=== PATIENT | male | born 1945 | race Caucasian/White ===

== ENCOUNTER 2018-02-22 21:36 | Outpatient (CLI) | payer MEDICARE ==
[2018-02-23] MEDS ORDERED: IOPAMIDOL-300 100 ML VIAL ONE (11:45)
[2018-03-03] MEDS ORDERED: IOPAMIDOL-300 100 ML VIAL IVP ONE (09:46)
== END 2018-02-22 21:37 | disposition critical access hospital (66) ==
LOC: EMS 21:36
PROVIDERS: ATTEND Surgery
DX: R06.00 Dyspnea, unspecified (principal); R53.1 Weakness
CPT/HCPCS: A0425; A0433

== ENCOUNTER 2018-02-22 21:48 | Inpatient (IN) | payer MEDICARE ==
[2018-02-22] MEDS ORDERED: METOPROLOL 5 MG/5 ML VIAL IVP STA ×2 (22:00→23:26)
--- NOTE | 2018-02-22 22:03 | ED Physician Documentation ---
History of Present Illness - Stated complaint Stated Complaint: RIGHT SIDE WEAKNESS, INTUBATED - Chief complaint Chief Complaint: Resp - History obtained from History obtained from: EMS - History of Present Illness Timing: Today (72-year-old gentleman brought in by paramedics. He lives alone and he called the ambulance tonight because of difficulty breathing and right- sided weakness which is new, "today". Paramedics found him to have a flaccid right side, he was in atrial fibrillation with RVR and he was hypertensive with very labored breathing and low pulse oximetry despite supplemental oxygen. He was administered etomidate and succinylcholine and intubated, and just prior to arrival received Versed and vecuronium. No history is available from the patient, although he has an account number in the EMR there is nothing in the EMR about him.) Review of Systems Unable to obtain: Intubated PD PAST MEDICAL HISTORY - Past Medical History Past Medical History: No Cardiovascular: Other (unknown) - Allergies Allergies/Adverse Reactions: Allergies Allergy/AdvReac Type Severity Reaction Status Date / Time Unable to Assess Allergy Verified 02/22/18 22:14 - Living Situation Living Situation: reports: Alone (per EMS) - Social History Substance Use and Type: Other (unknown) - Family History Family history: reports: Other (unknown) PD ED PE NORMAL - Vitals Vital signs reviewed: Yes - General General: Other (He is intubated with a good pulse, he is in rapid atrial fibrillation and hypertensive. His pupils are reactive but he has no other neurologic response, noting that he did just get vecuronium prior to arrival.) - HEENT HEENT: PERRL - Cardiac Cardiac: Other (Rapid and irregular) - Respiratory Respiratory: Other (Coarse but symmetric breath sounds, no spontaneous respiratory effort.) - Abdomen Abdomen: Soft, Non tender - Derm Derm: No rash - Neuro Neuro: Other (GCS3) Results - Vitals Vitals: Vital Signs - 24 hr 02/22/18 02/22/18 02/22/18 21:54 22:13 22:15 Temperature 35.2 C L Heart Rate 134 H 139 H 162 H Respiratory 17 16 16 Rate Blood Pressure 177/132 H 174/153 H 166/125 H O2 Saturation 98 92 91 L 02/22/18 02/22/18 02/22/18 22:20 22:25 22:27 Temperature Heart Rate 123 H 121 H 128 H Respiratory 16 16 16 Rate Blood Pressure 155/102 H 158/97 H 139/118 H O2 Saturation 92 90 L 91 L 02/22/18 02/22/18 02/22/18 22:30 22:35 22:40 Temperature Heart Rate 121 H 122 H 125 H Respiratory 16 16 16 Rate Blood Pressure 160/122 H 167/111 H 163/108 H O2 Saturation 90 L 90 L 91 L 02/22/18 02/22/18 02/22/18 22:45 22:50 22:55 Temperature Heart Rate 124 H 131 H 124 H Respiratory 16 16 16 Rate Blood Pressure 170/93 H 157/109 H 147/112 H O2 Saturation 90 L 90 L 97 02/22/18 02/22/18 02/22/18 23:14 23:28 23:36 Temperature 35.7 C L Heart Rate 130 H 126 H 114 H Respiratory 16 16 16 Rate Blood Pressure 147/121 H 148/100 H 133/93 H O2 Saturation 95 95 96 02/22/18 02/22/18 02/22/18 23:40 23:45 23:50 Temperature Heart Rate 107 H 109 H 106 H Respiratory 16 16 16 Rate Blood Pressure 105/90 H 117/80 115/83 H O2 Saturation 96 96 97 Oxygen O2 Source Mechanical ventilator - EKG (time done) 2156 Rate: Rate (enter#) (168) Rhythm: Atrial fibrillation QRS: LVH Ischemia: Non specific changes Computer interpretation: Agree with computer - Labs Labs: Laboratory Tests 02/22/18 02/22/18 02/22/18 22:00 22:00 22:00 WBC 11.8 H RBC 4.79 Hgb 14.1 Hct 44.4 MCV 92.7 MCH 29.4 MCHC 31.8 L RDW 14.1 Plt Count 246 MPV 9.4 Neut # 6.0 Lymph # 4.7 H [place] # 0.8 Eos # 0.2 Baso # 0.0 Absolute Nucleated RBC 0.00 Nucleated RBC % 0.0 Manual Slide Review Indicated Platelet Estimate NORMAL (130-450,000) Platelet Morphology 1+ GIANT PLATELETS RBC Morph Micro Appear NORMAL APPEARANCE PT 12.8 H INR 1.1 APTT 25.6 Sodium 139 Potassium 4.6 Chloride 106 Carbon Dioxide 22 Anion Gap 11.0 BUN 20 Creatinine 1.1 Estimated GFR (MDRD) 66 L Glucose 328 H Lactic Acid Calcium 8.4 L Magnesium 2.0 Total Bilirubin 0.9 AST 48 H ALT 53 Alkaline Phosphatase 90 Total Creatine Kinase 87 CK-MB (CK-2) Troponin I Total Protein 6.6 L Albumin 3.7 Globulin 2.9 Albumin/Globulin Ratio 1.3 Lipase 15 L TSH Urine Color Urine Clarity Urine pH Ur Specific [place] Urine Protein Urine Glucose (UA) Urine Ketones Urine Occult Blood Urine Nitrite Urine Bilirubin Urine Urobilinogen Ur Leukocyte Esterase Urine RBC Urine WBC Ur Squamous Epith Cells Urine Bacteria Ur Microscopic Review Urine Culture Comments Salicylates < 6.0 Urine Opiates Screen Ur Oxycodone Screen Urine Methadone Screen Ur Propoxyphene Screen Acetaminophen < 10 L Ur Barbiturates Screen Ur Tricyclics Screen Ur Phencyclidine Scrn Ur Amphetamine Screen U Methamphetamines Scrn U Benzodiazepines Scrn Urine Cocaine Screen U Cannabinoids Screen Ethyl Alcohol < 5.0 02/22/18 02/22/18 02/22/18 22:00 22:00 22:18 WBC RBC Hgb Hct MCV MCH MCHC RDW Plt Count MPV Neut # Lymph # [place] # Eos # Baso # Absolute Nucleated RBC Nucleated RBC % Manual Slide Review Platelet Estimate Platelet Morphology RBC Morph Micro Appear PT INR APTT Sodium Potassium Chloride Carbon Dioxide Anion Gap BUN Creatinine Estimated GFR (MDRD) Glucose Lactic Acid 2.8 H Calcium Magnesium Total Bilirubin AST ALT Alkaline Phosphatase Total Creatine Kinase CK-MB (CK-2) 3.7 Troponin I 0.04 Total Protein Albumin Globulin Albumin/Globulin Ratio Lipase TSH 1.23 Urine Color Urine Clarity Urine pH Ur Specific [place] Urine Protein Urine Glucose (UA) Urine Ketones Urine Occult Blood Urine Nitrite Urine Bilirubin Urine Urobilinogen Ur Leukocyte Esterase Urine RBC Urine WBC Ur Squamous Epith Cells Urine Bacteria Ur Microscopic Review Urine Culture Comments Salicylates Urine Opiates Screen Ur Oxycodone Screen Urine Methadone Screen Ur Propoxyphene Screen Acetaminophen Ur Barbiturates Screen Ur Tricyclics Screen Ur Phencyclidine Scrn Ur Amphetamine Screen U Methamphetamines Scrn U Benzodiazepines Scrn Urine Cocaine Screen U Cannabinoids Screen Ethyl Alcohol 02/22/18 22:29 WBC RBC Hgb Hct MCV MCH MCHC RDW Plt Count MPV Neut # Lymph # [place] # Eos # Baso # Absolute Nucleated RBC Nucleated RBC % Manual Slide Review Platelet Estimate Platelet Morphology RBC Morph Micro Appear PT INR APTT Sodium Potassium Chloride Carbon Dioxide Anion Gap BUN Creatinine Estimated GFR (MDRD) Glucose Lactic Acid Calcium Magnesium Total Bilirubin AST ALT Alkaline Phosphatase Total Creatine Kinase CK-MB (CK-2) Troponin I Total Protein Albumin Globulin Albumin/Globulin Ratio Lipase TSH Urine Color YELLOW Urine Clarity CLEAR Urine pH 6.0 Ur Specific [place] 1.025 Urine Protein NEGATIVE Urine Glucose (UA) NEGATIVE Urine Ketones NEGATIVE Urine Occult Blood SMALL H Urine Nitrite NEGATIVE Urine Bilirubin NEGATIVE Urine Urobilinogen 0.2 (NORMAL) Ur Leukocyte Esterase NEGATIVE Urine RBC 0-5 Urine WBC 0-3 Ur Squamous Epith Cells NONE SEEN Urine Bacteria None Seen Ur Microscopic Review INDICATED Urine Culture Comments NOT INDICATED Salicylates Urine Opiates Screen NEGATIVE Ur Oxycodone Screen NEGATIVE Urine Methadone Screen NEGATIVE Ur Propoxyphene Screen NEGATIVE Acetaminophen Ur Barbiturates Screen NEGATIVE Ur Tricyclics Screen NEGATIVE Ur Phencyclidine Scrn NEGATIVE Ur Amphetamine Screen NEGATIVE U Methamphetamines Scrn POSITIVE H U Benzodiazepines Scrn NEGATIVE Urine Cocaine Screen NEGATIVE U Cannabinoids Screen POSITIVE H Ethyl Alcohol - Rads (name of study) CT Head Radiology: EMP read contemporaneously (Possible hyperdense artery in the left sylvian fissure) 1v chest Radiology: EMP read contemporaneously (Vascular haziness, endotracheal tube 3 cm from the reyna) Post Line CXR Radiology: EMP read contemporaneously (Right IJ line in the mid SVC, no pneumothorax.) Procedures - Central Line Central Line Preparation: Unable to obtain consent, Time out completed, Ultrasound used, Sterile prep and drape Central line location: Right IJ Central line type: Triple lumen Central line aftercare: Chlorhexidine disc placed, Secured, Placement confirmed , No pneumothorax, No complications PD MEDICAL DECISION MAKING - ED course ED course: 72-year-old gentleman presents after intubation with respiratory failure and a history per the paramedics of flaccid right side that started "today". Sounds like he lives alone and initially I did not have any contact information in the chart for family etc. He was taken expeditiously to head CT which showed a possible hyperdense area in the left sylvian fissure concerning for clot. A central line was placed and he was started on propofol, he was breathing over the vent to little bit but still no really useful neurologic examination, I could not really obtain any response to painful stimuli. Lab work was notable for methamphetamine positivity. His head CT was otherwise initially negative. He was given divided doses of IV mode metoprolol for the A. fib with RVR with pretty good response. I called [facility] after ordering a CT angiogram of the head and neck and spoke with Dr. Ravi Lr there who confirmed that if he had a intra-arterial thrombus, he should probably be transferred as they may be able to do something about it. Review of the EMR finally revealed the name, Apple Colón and I found a phone number, . She did answer the phone and said that she was his ex- and still his decision maker. I do not have any confirmation of this but I told her I would call her back after the results of the CT angiogram. Dr Lr looked at the images and did not see arterial thrombus. I did not either. Nor did Sudarshan. Given that, nothing vascular to do urgently and I spoke with Dr. Stewart for admission at 12:05 AM (02/23/2018) - Critical Care Time(min): 102 Time Includes: Direct patient care, Review records, Reassess patient, Document care, Coordinate care, Medical consult, Family consult for tx dec Data interpretation: Labs, Pulse ox Procedures included in critical care time: Peripheral IV Procedures excluded from critical care time: Central IV, EKG Departure - Departure Clinical Impression: Atrial fibrillation with RVR, Stroke-like symptom Respiratory failure Qualifiers: Chronicity: acute Respiratory failure complication: unspecified whether with hypoxia or hypercapnia Qualified Code(s): J96.00 - Acute respiratory failure, unspecified whether with hypoxia or hypercapnia Condition: Critical
[2018-02-22 22:13] LABS: BASOPHILS % (AUTO) 0.3 %; EOSINOPHILS # (AUTO) 0.2 10^3/uL (0.0-0.7); EOSINOPHILS % (AUTO) 1.4 %; HGB - HEMOGLOBIN 14.1 g/dL (14.0-18.0); LYMPHOCYTES # (AUTO) 4.7 10^3/uL (1.5-3.5); LYMPHOCYTES % (AUTO) 39.9 %; MEAN CORPUSCULAR HEMOGLOBIN 29.4 pg (27.0-31.0); MEAN CORPUSCULAR HGB CONC 31.8 g/dL (32.0-36.0); MEAN CORPUSCULAR VOLUME 92.7 fL (80.0-94.0); MEAN PLATELET VOLUME 9.4 fL (7.4-11.4); MONOCYTES # (AUTO) 0.8 10^3/uL (0.0-1.0); MONOCYTES % (AUTO) 7.1 %; NEUTROPHILS % (AUTO) 51.3 %; PLT - PLATELET COUNT 246 10^3/uL (130-450); RED BLOOD COUNT 4.79 10^6/uL (4.70-6.10); RED CELL DISTRIBUTION WIDTH 14.1 % (12.0-15.0); WHITE BLOOD COUNT 11.8 x10^3/uL (4.8-10.8)
[2018-02-22 22:17] LABS: INR 1.1 (0.8-1.2); PT - PROTHROMBIN TIME 12.8 secs (9.9-12.6)
[2018-02-22 22:20] LABS: ACETAMINOPHEN < 10 ug/mL (10-30); ALBUMIN 3.7 g/dL (3.2-5.5); ALBUMIN/GLOBULIN RATIO 1.3 (1.0-2.2); ALKALINE PHOSPHATASE 90 IU/L (42-121); ALT ALANINE AMINOTRANSFERASE 53 IU/L (10-60); AST ASPARTATE AMINOTRANSFERASE 48 IU/L (10-42); BILIRUBIN,TOTAL 0.9 mg/dL (0.2-1.0); BUN - BLOOD UREA NITROGEN 20 mg/dL (6-20); CALCIUM 8.4 mg/dL (8.5-10.3); CARBON DIOXIDE - CO2 22 mmol/L (21-32); CHLORIDE 106 mmol/L (101-111); CK- CREATINE KINASE 87 IU/L (22-269); CREATININE 1.1 mg/dL (0.6-1.2); GFR - MDRD 66 (>89); GLUCOSE 328 mg/dL (70-100); LIPASE 15 U/L (22-51); SALICYLATE < 6.0 mg/dL; SODIUM 139 mmol/L (135-145); TOTAL PROTEIN 6.6 g/dL (6.7-8.2)
[2018-02-22 22:23] LABS: CREATINE KINASE MB 3.7 ng/mL (0.6-6.3); TROPONIN I 0.04 ng/mL (<0.49)
--- NOTE | 2018-02-22 22:26 | CT Report ---
EXAM: CT HEAD EXAM DATE: 02/22/2018 10:16 PM. CLINICAL HISTORY: Right sided weakness COMPARISON: None. TECHNIQUE: Multiaxial CT images were obtained from the foramen magnum to the vertex. Reformats: Coron al. IV contrast: None. In accordance with CT protocol optimization, one or more of the following dose reduction techniques w ere utilized for this exam: automated exposure control, adjustment of mA and/or KV based on patient s ize, or use of iterative reconstructive technique. FINDINGS: Parenchyma: No intraparenchymal hemorrhage. No evidence of mass, midline shift, or CT findings of rec ent infarction. Fallon-white differentiation is distinct. Lacunar infarcts are seen within the right ca udate nucleus. Extraaxial Spaces: Normal for age. No subdural or epidural collections identified. Ventricles: Normal in size and position. Sinuses and Orbits: Imaged paranasal sinuses, orbits, and mastoids show no significant abnormality. Bones: No evidence of fracture or calvarial defect. Other: None. IMPRESSION: Chronic lacunar infarcts within the right caudate nucleus. Faintly hyperdense left M2 branch within the dorsal sylvian fissure, potentially thrombosed. No hemorrhage. No CT evidence of recent infarct. ASPECTS score 10 bilaterally. RADIA The above findings were discussed with Dr. Kaplan by Dr. Norris Love at 22:24 hrs on 02/22/18. Referring Provider Line: [phone] SITE ID: [id number]
[2018-02-22 22:30] LABS: MUDS CUTOFF CONCENTRATIONS CUTOFF CONC BELOW:
[2018-02-22] MEDS: PROPOFOL 1000 MG/100 ML 100 ML IV STA (22:30)
[2018-02-22] MEDS ORDERED: IOPAMIDOL-300 100 ML VIAL ONE (22:32)
[2018-02-22 22:34] LABS: BILIRUBIN,URINE NEGATIVE (NEGATIVE); GLUCOSE, URINE (UA) NEGATIVE (NEGATIVE); KETONES,URINE (UA) NEGATIVE (NEGATIVE); LEUKOCYTE ESTERASE, URINE NEGATIVE (NEGATIVE); NITRITE,URINE NEGATIVE (NEGATIVE); OCCULT BLOOD,URINE SMALL (NEGATIVE); PROTEIN,URINE NEGATIVE (NEGATIVE); UROBILINOGEN,URINE 0.2 (NORMAL) E.U./dL (NORMAL)
[2018-02-22 22:37] LABS: PLATELET ESTIMATE, MANUAL NORMAL (130-450,000) (NORMAL); PLATELET MORPHOLOGY 1+ GIANT PLATELETS (NORMAL); RBC MORPHOLOGY (MULTIPLE) NORMAL APPEARANCE (NORMAL)
[2018-02-22 22:45] LABS: CLARITY,URINE CLEAR (CLEAR)
[2018-02-22 22:46] LABS: AMPHETAMINE SCREEN,URINE NEGATIVE (NEGATIVE); BACTERIA,URINE None Seen /HPF (None Seen); BENZODIAZEPINES SCREEN, URINE NEGATIVE (NEGATIVE); COCAINE SCREEN URINE NEGATIVE (NEGATIVE); METHADONE SCREEN, URINE NEGATIVE (NEGATIVE); METHAMPHETAMINES SCREEN, URINE POSITIVE (NEGATIVE); OPIATE SCREEN, URINE NEGATIVE (NEGATIVE); OXYCODONE SCREEN, URINE NEGATIVE (NEGATIVE); PROPOXYPHENE SCREEN, URINE NEGATIVE (NEGATIVE); RBC,URINE 0-5 /HPF (0-5); SQUAMOUS EPITHELIAL CELL,UR NONE SEEN (<= Few); TRICYCLIC ANTIDEPRESSANT,URINE NEGATIVE (NEGATIVE)
--- NOTE | 2018-02-22 22:49 | XRAY Report ---
EXAM: CHEST RADIOGRAPHY EXAM DATE: 02/22/2018 10:16 PM. CLINICAL HISTORY: Respiratory failure. Intubated. COMPARISON: None. TECHNIQUE: 1 view. FINDINGS: Lungs/Pleura: Mild haziness in the bases, otherwise no focal opacities evident. No pleural effusion. No pneumothorax. Mediastinum: Large heart. Other: ET tube is about 5 cm from the reyna. Mild S-shaped scoliosis. IMPRESSION: 1. Large heart. 2. Mild haziness in the bases, atelectasis/infiltrate versus pulmonary edema. 3. ET tube about 2 cm from the reyna. RADIA Referring Provider Line: [phone] SITE ID: [id number]
--- NOTE | 2018-02-22 23:07 | XRAY Report ---
EXAM: CHEST RADIOGRAPHY EXAM DATE: 02/22/2018 10:59 PM. CLINICAL HISTORY: Post right IJ central line. COMPARISON: Today at 2155. TECHNIQUE: 1 view. FINDINGS: Lungs/Pleura: Mild bibasilar and left perihilar haziness. No pneumothorax. Mediastinum: Large heart. Other: ET tube about 7 cm from the reyna. Distal enteric tube obscured. Right IJ line to mid SVC. IMPRESSION: Right IJ line to mid SVC. No pneumothorax or other acute change. RADIA Referring Provider Line: [phone] SITE ID: [id number]
[2018-02-22] MEDS: IOPAMIDOL-300 100 ML VIAL IVP ONE (23:29)
[2018-02-23] MEDS ORDERED: ONDANSETRON 4 MG/2 ML VIAL IVP PRN (00:09)
--- NOTE | 2018-02-23 00:17 | CT Report ---
EXAM: CT ANGIOGRAM HEAD. CT SCAN OF THE HEAD WITH CONTRAST. EXAM DATE: 02/22/2018 11:29 PM CLINICAL HISTORY: Right sided weakness, now unresponsive and intubated. COMPARISON: Head CT done immediately prior. TECHNIQUE: - CT Scan Head: Using a multidetector scanner, axial images were acquired from the foramen magnum to the skull vertex after contrast administration. - CT Angiogram: Using a multidetector scanner, high-resolution axial images were acquired from the sk ull base through vertex following rapid infusion of intravenous contrast. Reformats: Multiplanar MIP reformats were reconstructed. Nascet criteria used for stenosis measurement. IV Contrast: 80 cc Isovue 300. In accordance with CT protocol optimization, one or more of the following dose reduction techniques w ere utilized for this exam: automated exposure control, adjustment of mA and/or KV based on patient s ize, or use of iterative reconstructive technique. FINDINGS: POST-CONTRAST HEAD: No abnormal enhancement. CT ANGIOGRAM HEAD: Left vertebral artery is slightly larger than the right. Basilar artery and the right posterior cereb ral artery are unremarkable. Persistent circulation to the left posterior cerebral area There is atherosclerotic calcification of both carotid siphons without flow limiting stenosis. Both a nterior and middle cerebral arteries appear patent and unremarkable. Specifically, the left MCA and i ts major branches appear patent without evidence of thrombus. Impression: Head CT after contrast: No abnormal enhancement. Intracranial CT angiography: No flow limiting stenosis, occlusion or aneurysm. RADIA The above findings were discussed with Dr. Kaplan by Dr. Norris Love at 00:04 hrs on 02/23/18. Referring Provider Line: [phone] SITE ID: [id number]
--- NOTE | 2018-02-23 00:21 | CT Preliminary Report ---
Exam: CT NECK ANGIO Impression: No significant carotid stenosis. Patent vertebral arteries in the neck bilaterally. RADIA SITE ID: [id number]
--- NOTE | 2018-02-23 00:21 | CT Report ---
EXAM: CT ANGIOGRAM NECK EXAM DATE: 02/22/2018 11:30 PM. CLINICAL HISTORY: Right sided weakness, now unresponsive and intubated. COMPARISON: None. TECHNIQUE: Routine axial helical imaging was performed from the skull base through the aortic arch. R econstructions: Routine multiplanar 3D MIP reconstructions. IV Contrast: 80 cc Isovue 300. Evaluation of arterial stenosis is based on a NASCET method of measurement. In accordance with CT protocol optimization, one or more of the following dose reduction techniques w ere utilized for this exam: automated exposure control, adjustment of mA and/or KV based on patient s ize, or use of iterative reconstructive technique. FINDINGS: Aortic arch, origins of the great vessels, brachiocephalic and both subclavian arteries are patent. Right common carotid artery is patent to the bifurcation. There is atherosclerotic calcification of t he carotid bulb without significant stenosis. Left common carotid is patent to the bifurcation. Minimal atherosclerotic calcification of the caroti d bulb without flow-limiting stenosis. Both vertebral arteries are patent in the neck. Left is slightly larger than the right. ET and orogastric tube in position. Right IJ line. Impression: No significant carotid stenosis. Patent vertebral arteries in the neck bilaterally. RADIA Referring Provider Line: [phone] SITE ID: [id number]
--- NOTE | 2018-02-23 00:38 | HISTORY & PHYSICAL EXAMINATION ---
Chief Complaint - Chief Complaint Chief Complaint: he called EMS bc he was having right sided weakness History of Present Illness - Admitted From Admitted From:: ER/home - History Obtained From Records Reviewed: [facility] History obtained from: Dr. Reese and ambulance crew Exam Limitations: patient is intubated on propofol - History of Present Illness HPI Comment/Other: We know nothing about this gentleman other than what in the EMR. He has a couple of x-rays from a few years ago, and in reviewing [facility] and the [facility] network, there is no data. The [facility] has him being registered in 2013 with [facility] but there are no notes, lab, x-rays or anything associated with that registration. He called the ambulance [employer] [employer]. Stated that he was having a stroke with right- sided weakness. Fire engine responded initially and found the patient to have respiratory distress and put him on a nonrebreather. The ambulance crew showed up shortly thereafter. They described the situation with the house was disheveled, the patient is unhygienic. There are packs of cigarettes next to him in the chair he was sitting in. He smelled of cigarette smoke. He was tripoding, struggling to breathe. He was answering them in yes no by nodding his head or shaking his head but not sentences. Even with that, he was unable to completely communicate as he was getting more more exhausted. They quickly transferred into their ambulance rig, and he was then put on CPAP and nebulizers. He was starting to get lethargic, tired out, and his breathing rate was starting to slow down. Fearing respiratory failure, the patient was emergently intubated in the field and received paralytics and sedatives. When he got to the emergency room, patient was now intubated and paralyzed. Dr. Reese has done a workup and found him to being intubated, obtunded gentleman who is vent dependent. Afebrile. Tachycardic with atrial fibrillation. He was hypertensive to 177/132. Pupils were reactive. He had coarse breath sounds with no spontaneous respiratory effort and the abdomen appeared benign. [place] Coma Scale was 3. He went to the CT scanner and he had hyperdense area in the left sylvian fissure concerning for a clot. A central line was started and propofol was also started. His A. fib with RVR was treated with metoprolol. [facility] was consulted and felt that there is not much more they could offer. CT angiogram of the head and neck was negative for embolic stroke. The patient is now admitted to ICU on a ventilator, slowly starting to breathe above the vent. On a propofol drip and systolic pressure 68-70. His atrial fibrillation is now in the low 100s. Chest x-ray does not show new infiltrate but he does have a very large heart. Urine tox screen is positive for cannabis and methamphetamines. Random glucose is 328. Lactic acid is 2.8. Troponins are negative. ADDDENDUM: 01:29 His exwife came to the hospital with the patient's 13 year old son. He lives w mom and avoids going to Dad's house bc of severe cigarette smoking. As far as they know, he doesn't have recreational substance abuse hx nor does he drink. He just smokes...a lot but can't quantify. he never sees physicians so they don 't know if he had any heart, lung and endocrine diseases. 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 She is his second . Son from first marriage did live with them until he reached majority then left the house. Since he turned 22 he has not spoken to his dad for 10 years. She has noted he had depression and that was why they . He has gotten worse with that over the years and he was more and more isolated. She also feels that he has gotten increasingly forgetful. Emotionally labile over the last 2 years. wonders if he has had strokes before. They last saw him 2 weeks ago and he was very tired, struggling to breathe. No fever, no acute confusion. She is is POA even though they are , She states they is the proper form filled out but it's in a safety deposit box. I have asked her to bring that in for us. History - Past Medical History Cardiovascular: reports: Other (unknown) Other Past Medical History: Unable to obtain updated medical history during this visit r/t pt status. - Past Surgical History Other past surgical history: Unable to obtain any surgical history at this time - Family & Social History Family History Comment/Other: Unable to obtain at this time Living Situation: Alone (per EMS) Social History Notes: Unable to obtain at this time. 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) Meds/Allgy - Allergies Allergies/Adverse Reactions: Allergies Allergy/AdvReac Type Severity Reaction Status Date / Time Unable to Assess Allergy Verified 02/22/18 22:14 Review of Systems - Other Findings Other Findings: Unable to assess at this time Exam - Vital Signs Reviewed Vital Signs: Yes Vital Signs: Vital Signs x48h Temp Pulse Resp BP Pulse Ox 02/22/18 23:50 106 H 16 115/83 H 97 02/22/18 23:45 109 H 16 117/80 96 02/22/18 23:40 107 H 16 105/90 H 96 02/22/18 23:36 114 H 16 133/93 H 96 02/22/18 23:28 126 H 16 148/100 H 95 02/22/18 23:14 35.7 C L 130 H 16 147/121 H 95 02/22/18 22:55 124 H 16 147/112 H 97 02/22/18 22:50 131 H 16 157/109 H 90 L 02/22/18 22:45 124 H 16 170/93 H 90 L 02/22/18 22:40 125 H 16 163/108 H 91 L 02/22/18 22:35 122 H 16 167/111 H 90 L 02/22/18 22:30 121 H 16 160/122 H 90 L 02/22/18 22:27 128 H 16 139/118 H 91 L 02/22/18 22:25 121 H 16 158/97 H 90 L 02/22/18 22:20 123 H 16 155/102 H 92 02/22/18 22:15 162 H 16 166/125 H 91 L 02/22/18 22:13 139 H 16 174/153 H 92 02/22/18 21:54 35.2 C L 134 H 17 177/132 H 98 - Physical Exam General Appearance: positive: Other (Intubated on a propofol drip, on a ventilator, pupils slightly dilated at mid range and unresponsive at this time.He is a tall, white male, looks stated age, unshaven, smells of urine) Eyes Bilateral: positive: PERRL ENT: positive: Other (Very poor dentition) Neck: positive: No JVD, Lymphadenopathy (R) ([place]), Lymphadenopathy (L) ( [place]). negative: Stiff neck, Carotid bruit Respiratory: positive: Chest non-tender (Barrel chest), Wheezes, Rhonchi, Other (He is now breathing at 30 breaths per minute. The vent is set at 14. I have lowered his PEEP from 10-5. His FiO2 is 100% and is saturating 100%. Peak pulmonary pressures are at 20-22. TV is set at 450 and he can breath to 530 cc.) Cardiovascular: positive: Irregularly irregular, Tachycardia, Other (Distant cardiac tones). negative: Systolic murmur, Gallop/S4, Friction rub Peripheral Pulses: positive: 1+ Abdomen: positive: Non-tender, No organomegaly, Nml bowel sounds, No distention , Other (Umbilicus is filled with dried skin, slightly reddened, foul-smelling) Skin: positive: Warm, Dry Extremities: positive: No pedal edema Neurologic/Psychiatric: positive: Other (Grimaces with blood draws, grimaces with painful stimuli and sternal rub, but he is on a propofol drip) Babinski Reflex: Right: Absent, Left: Absent Conclusion/Plan - Problem List (1) Respiratory failure Conclusion/Plan: In putting together the scene is described by EMS with cigarettes, his tripoding on initial exam, then failing with a large heart on chest x-ray, this gentleman could have combined congestive heart failure and COPD as the cause of his acute respiratory failure. There is no pneumonia on chest x-ray. Plan: Admit to hospital for inpatient status to ICU Once he is in ICU, change ventilator from portable ventilator that he is on to the bedside ventilator in ICU Assessment status with blood gas and change settings as appropriate. My first goal is to reduce his FiO2 and control his respiratory rate Treat empirically for COPD with nebs, steroids, and short-term antibiotics until he wakes up Attempt extubation in the morning if he is stable. Assess cardiac status to see if he is with congestive heart failure. Neck veins are not distended, and while he has rhonchi, not necessarily has rales. Check echo in the morning. Qualifiers: Chronicity: acute Respiratory failure complication: unspecified whether with hypoxia or hypercapnia Qualified Code(s): J96.00 - Acute respiratory failure, unspecified whether with hypoxia or hypercapnia (2) Altered mental status, unspecified Conclusion/Plan: Initially felt to be from stroke as the patient stated that to EMS on the phone. They stated that he seemed to be having right arm weakness at the scene. Here in the emergency room, he has been spontaneously moving his left arm with noxious stimuli. Neurologic evaluation shows him to have possible old chronic lacunar infarcts, but nothing new. I do not have the report of the CT angiogram of head and neck yet. It has not been released by [facility]. Verbally, from Dr. Reese, that is negative. He will get a statin, and aspirin when he is awake. Qualifiers: Coma depth: [place] coma 3-8 Coma timing: at arrival to emergency department (3) Atrial fibrillation with RVR Conclusion/Plan: Unclear if this is old or new. In looking at the chest x-ray and seen the heart size, this may be a chronic problem. With methamphetamines on board, I postulated cardiomyopathy, left atrial dilation, and chronic A. fib. In any case, we will just attempt rate control at this time. Initial troponins are negative. Repeat troponins in 6 hours. Check echocardiogram in the morning.Start anticoagulation with Coumadin when he is awake in the morning if possible. (4) Hypotension Conclusion/Plan: This seems to be related to the propofol. The higher the propofol dose, the lower his blood pressure. We will adjust vent settings, adjust propofol, and he was blood pressure does not come up, consider levo fed. Qualifiers: Hypotension type: hypotension due to drug Qualified Code(s): I95.2 - Hypotension due to drugs (5) Hyperglycemia Conclusion/Plan: At this time is not clear if he has lactic acidosis with DKA or lactic acidosis from another cause and the hyperglycemia is a separate issue. We do not even know if he has diabetes or not. Plan, Lantus 10 units right now. Sliding scale insulin high dose for an n.p.o. patient. Check A1c. When awake, investigate his past medical history with practitioners or if he even has a history of diabetes. Considering him about to start him on steroids for COPD, I anticipate his sugars to get higher. (6) Methamphetamine use Conclusion/Plan: noted on tox screen. will watch for withdrawal. investigate more when he is awake and off vent. hopefully by tomorrow. - Lab Results Fish Bones: 02/22/18 22:00 02/22/18 22:00 - Diagnostic Imaging Results Diagnostic Imaging Results: positive: Final report reviewed - EKG Results EKG Interpreted Independently: Yes Core Measures - Anticipated LOS I expect patient to be DC'd or transferred within 96 hours.: Yes - DVT/VTE - Prophylaxis VTE/DVT Device ordered at admit?: Yes
[2018-02-23] MEDS ORDERED: SODIUM CHLORIDE 0.9% 1,000 ML IV ONE (00:57)
[2018-02-23] MEDS ORDERED: IPRATROPIUM/ALBUTEROL 3 ML NEB INH PRN (00:58)
[2018-02-23] MEDS ORDERED: levoFLOXacin 750 MG/150 ML 750 MG/150 ML BAG IV SCH (01:00)
[2018-02-23] MEDS ORDERED: INSULIN GLARGINE 300 UNIT/3 ML PEN SUBQ SCH (01:00)
[2018-02-23] MEDS: SODIUM CHLORIDE 0.9% 1,000 ML IV SCH ×2 (01:05→12:12)
[2018-02-23] MEDS ORDERED: METOPROLOL 5 MG/5 ML VIAL IVP PRN (01:05)
[2018-02-23] MEDS ORDERED: PROPOFOL 1000 MG/100 ML 100 ML IV ONE ×2 (01:12→06:16)
[2018-02-23] MEDS: methylPREDNISolone SUCCINATE 40 MG/ML VIAL IVP SCH ×3 (01:20→14:36)
[2018-02-23] MEDS: SODIUM CHLORIDE FLUSH 0.9% 10 ML SYRINGE IVP SCH ×2 (01:20→08:28)
[2018-02-23 02:22] LABS: ABG BASE EXCESS -6.3 mmol/L (-2.0-3.0); ABG OXYGEN SATURATION 99 % (94-98); ABG PCO2 49 mmHg (34-45); ABG PH 7.25 (7.35-7.45); ABG TCO2 22.5 MMOL/L (21.0-29.0)
[2018-02-23 02:23] LABS: ALLEN TEST POSITIVE
[2018-02-23 02:25] LABS: ABG PO2 312 mmHg (80-100)
[2018-02-23] MEDS: PROPOFOL 1000 MG/100 ML 100 ML IV STA ×2 (02:31→06:13)
[2018-02-23 04:19] LABS: BASOPHILS % (AUTO) 0.3 %; EOSINOPHILS % (AUTO) 0.1 %; HGB - HEMOGLOBIN 13.1 g/dL (14.0-18.0); LYMPHOCYTES # (AUTO) 0.7 10^3/uL (1.5-3.5); LYMPHOCYTES % (AUTO) 4.8 %; MEAN CORPUSCULAR HEMOGLOBIN 29.7 pg (27.0-31.0); MEAN CORPUSCULAR HGB CONC 32.4 g/dL (32.0-36.0); MEAN CORPUSCULAR VOLUME 91.7 fL (80.0-94.0); MEAN PLATELET VOLUME 9.2 fL (7.4-11.4); MONOCYTES # (AUTO) 0.9 10^3/uL (0.0-1.0); MONOCYTES % (AUTO) 6.5 %; NEUTROPHILS # (AUTO) 12.9 10^3/uL (1.5-6.6); NEUTROPHILS % (AUTO) 88.3 %; PLT - PLATELET COUNT 197 10^3/uL (130-450); RED BLOOD COUNT 4.42 10^6/uL (4.70-6.10); RED CELL DISTRIBUTION WIDTH 14.1 % (12.0-15.0); WHITE BLOOD COUNT 14.6 x10^3/uL (4.8-10.8)
[2018-02-23 04:30] LABS: ALBUMIN 3.6 g/dL (3.2-5.5); ALBUMIN/GLOBULIN RATIO 1.4 (1.0-2.2); BILIRUBIN,TOTAL 0.8 mg/dL (0.2-1.0); CALCIUM 8.1 mg/dL (8.5-10.3); CREATININE 1.2 mg/dL (0.6-1.2); TOTAL PROTEIN 6.2 g/dL (6.7-8.2)
[2018-02-23] MEDS: INSULIN REGULAR HUMAN 100 UNIT/1 ML 10 ML MDV SUBQ SCH ×2 (06:13→12:46)
[2018-02-23 06:21] LABS: ABG BASE EXCESS -2.9 mmol/L (-2.0-3.0); ABG OXYGEN SATURATION 93 % (94-98); ABG PCO2 44 mmHg (34-45); ABG PH 7.33 (7.35-7.45); ABG PO2 65 mmHg (80-100); ABG TCO2 24.4 MMOL/L (21.0-29.0); ALLEN TEST POSITIVE
[2018-02-23] MEDS ORDERED: PANTOPRAZOLE 40 MG VIAL IVP SCH (07:00)
[2018-02-23 07:23] LABS: HB2 TOTAL 14.5 g/dL; HEMOGLOBIN A1C 0.53 g/dL; HEMOGLOBIN A1C % 5.5 % (4.6-6.2)
[2018-02-23] MEDS ORDERED: ASPIRIN 300 MG SUPP PR STA (08:02)
[2018-02-23] MEDS ORDERED: ATORVASTATIN 40 MG TABLET PO STA (08:03)
[2018-02-23] MEDS: SODIUM CHLORIDE FLUSH 0.9% 10 ML SYRINGE IVP PRN ×4 (08:29→13:39)
--- NOTE | 2018-02-23 08:48 | XRAY Report ---
FRONTAL CHEST: 02/23/2018 CLINICAL INDICATION: Intubation. COMPARISON: 02/22/2018. FINDINGS: Endotracheal tube terminates approximately 7 cm above the reyna. Nasogastric tube terminates in the stomach. Right jugular central venous catheter is stable. The cardiac silhouette is within normal limits. Right basilar airspace disease is increasing. Minimal left basilar airspace disease is seen. No pneumothorax or definite effusion. IMPRESSION: STABLE SUPPORT LINES AND TUBES. INCREASING RIGHT BASILAR AIRSPACE DISEASE. TD: 02/23/2018 08:47 [facility]
[2018-02-23] MEDS ORDERED: CHLORHEXIDINE GLUCONATE 15 ML UDC PO SCH (09:00)
[2018-02-23] MEDS ORDERED: METOPROLOL TARTRATE 25 MG TABLET PO SCH (09:00)
[2018-02-23 09:19] LABS: HGB - HEMOGLOBIN 13.6 g/dL (14.0-18.0); MEAN CORPUSCULAR HEMOGLOBIN 30.5 pg (27.0-31.0); MEAN CORPUSCULAR HGB CONC 33.4 g/dL (32.0-36.0); MEAN CORPUSCULAR VOLUME 91.2 fL (80.0-94.0); MEAN PLATELET VOLUME 9.1 fL (7.4-11.4); RED BLOOD COUNT 4.45 10^6/uL (4.70-6.10); RED CELL DISTRIBUTION WIDTH 13.8 % (12.0-15.0); WHITE BLOOD COUNT 11.7 x10^3/uL (4.8-10.8)
[2018-02-23] MEDS: PROPOFOL 1000 MG/100 ML 100 ML IV SCH ×3 (09:41→15:18)
[2018-02-23] MEDS ORDERED: HEPARIN 25000UNITS/500ML (D5W) 25,000 UNIT/500 ML BAG IV SCH (10:00)
[2018-02-23] MEDS ORDERED: ASPIRIN 325 MG TABLET PO SCH (10:00)
[2018-02-23] MEDS ORDERED: FUROSEMIDE 40 MG/4 ML VIAL IVP SCH (10:30)
[2018-02-23] MEDS ORDERED: IOPAMIDOL-300 100 ML VIAL ONE (10:38)
--- NOTE | 2018-02-23 11:13 | DISCHARGE SUMMARY ---
Discharge Summary Admit Date: 02/23/18 Discharge Date: 02/23/18 (Accepting Physician: Alex Tinajero MD ICU) Discharging Provider: Nick Sanchez MD Primary Care Provider: None Code Status: Attempt Resuscitation Condition at Discharge: Critical Discharge Disposition: 02 Transfer Acute Care Hosp Discharge Facility Name: [facility] Accepting Physician: Alex Tinajero MD ICU - DIAGNOSES Admission Diagnoses: 1. Acute respiratory failure 2. Altered mental status 3. Atrial fibrillation with rapid ventricular rate 4. Hypotension 5. Hyperglycemia 6. Methamphetamine use Discharge Diagnoses with Status of Each Condition: 1. Non-ST elevation myocardial infarction: Critical condition 2. Acute respiratory failure: Critical but stable 3. New onset systolic heart failure: Critical but stable 4. Altered mental status, unspecified: Stable 5. Atrial fibrillation with rapid ventricular rate: Stable 6. Hyperglycemia: Stable 7. Methamphetamine use: Stable - HPI History of Present Illness: We know nothing about this gentleman other than what in the EMR. He has a couple of x-rays from a few years ago, and in reviewing [facility] and the [facility] network, there is no data. The [facility] network has him being registered in [address] [facility] but there are no notes, lab, x-rays or anything associated with that registration. [facility]. Stated that he was having a stroke with right- sided weakness. Fire engine responded initially and found the patient to have respiratory distress and put him on a nonrebreather. The ambulance crew showed up shortly thereafter. They described the situation with the house was disheveled, the patient is unhygienic. There are packs of cigarettes next to him in the chair he was sitting in. He smelled of cigarette smoke. He was tripoding, struggling to breathe. He was answering them in yes no by nodding his head or shaking his head but not sentences. Even with that, he was unable to completely communicate as he was getting more more exhausted. They quickly transferred into their ambulance rig, and he was then put on CPAP and nebulizers. He was starting to get lethargic, tired out, and his breathing rate was starting to slow down. Fearing respiratory failure, the patient was emergently intubated in the field and received paralytics and sedatives. When he got to the emergency room, patient was now intubated and paralyzed. Dr. Resee has done a workup and found him to being intubated, obtunded gentleman who is vent dependent. Afebrile. Tachycardic with atrial fibrillation. He was hypertensive to 177/132. Pupils were reactive. He had coarse breath sounds with no spontaneous respiratory effort and the abdomen appeared benign. [place] Coma Scale was 3. He went to the CT scanner and he had hyperdense area in the left sylvian fissure concerning for a clot. A central line was started and propofol was also started. His A. fib with RVR was treated with metoprolol. [place] neurology was consulted and felt that there is not much more they could offer. CT angiogram of the head and neck was negative for embolic stroke. The patient is now admitted to ICU on a ventilator, slowly starting to breathe above the vent. On a propofol drip and systolic pressure 68-70. His atrial fibrillation is now in the low 100s. Chest x-ray does not show new infiltrate but he does have a very large heart. Urine tox screen is positive for cannabis and methamphetamines. Random glucose is 328. Lactic acid is 2.8. Troponins are negative. ADDDENDUM: 01:29 His exwife came to the hospital with the patient's 13 year old son. He lives w mom and avoids going to Dad's house bc of severe cigarette smoking. As far as they know, he doesn't have recreational substance abuse hx nor does he drink. He just smokes...a lot but can't quantify. he never sees physicians so they don 't know if he had any heart, lung and endocrine diseases. 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 She is his second . Son from first marriage did live with them until he reached majority then left the house. Since he turned 22 he has not spoken to his dad for 10 years. She has noted he had depression and that was why they . He has gotten worse with that over the years and he was more and more isolated. She also feels that he has gotten increasingly forgetful. Emotionally labile over the last 2 years. wonders if he has had strokes before. They last saw him 2 weeks ago and he was very tired, struggling to breathe. No fever, no acute confusion. She is is POA even though they are , She states they is the proper form filled out but it's in a safety deposit box. I have asked her to bring that in for us. - HOSPITAL COURSE Hospital Course: After admission to the intensive care unit the patient's oxygen was weaned down to 50% however with lowering his sedation even minimally the patient became very tachypneic and was fighting the vent. A repeat chest x-ray early in the morning revealed increasing right basilar airspace disease. The patient did have some slight crackles on examination and was treated with IV Lasix. The patient was also placed on IV Levaquin for treatment of possible pneumonia. The patient's repeat troponin in the carbon rod inserter returned at 0.37 this was then again repeated a few hours later and was trending up to 0.47. The patient' s BNP was also elevated at 1244 and a echocardiogram done early this morning showed a left ventricular systolic function that was severely impaired at less than 20%. At this point we were concerned for non-ST elevation [place] therefore the patient was started on aspirin, Lipitor and metoprolol. Also the patient was started on a heparin drip to treat a non-STEMI. At this point it was evident that the patient needed a higher level of care we called [facility] in [facility] and spoke with the nuclear medicine pet ct technologist who was willing to accept the patient but did ask for us to obtain a CT angiogram of the patient's lungs to rule out a pulmonary embolism. CT angiogram was done of the patient's lungs and revealed no pulmonary embolism but did show emphysema, small effusions and basilar atelectasis. The patient was placed on Solu-Medrol and duo nebs for treatment of COPD along with the above treatment. Of note the patient also had hyperglycemia on presentation but the patient's hemoglobin A1c was only 5.5. The patient was transferred to [facility] via ambulance in stable but critical condition. - ALLERGIES Allergies/Adverse Reactions: Allergies Allergy/AdvReac Type Severity Reaction Status Date / Time Unable to Assess Allergy Verified 02/22/18 22:14 - MEDICATIONS Home Medications: Ambulatory Orders Medication Instructions Recorded Confirmed No Known Home Medications [No 02/23/18 02/23/18 Known Home Medications] - PHYSICAL EXAM AT DISCHARGE General Appearance: positive: Moderate distress (Tachypneic), Other (Intubated and sedated) Eyes Bilateral: positive: No lid inflammation, Conjunctivae nml, No scleral icterus, Other (Both pupils are reactive to light, asymmetry) ENT: positive: ENT inspection nml, Pharynx nml, No signs of dehydration. negative: Purulent nasal drainage, Pharyngeal erythema, Oral lesions Neck: positive: Nml inspection, Thyroid nml, Trachea midline, Other (Elevated JVD). negative: Thyromegaly, Lymphadenopathy (R), Lymphadenopathy (L), Stiff neck, Carotid bruit, Tracheal deviation Respiratory: positive: Chest non-tender, Rales (base bilateral ), Rhonchi ( Bases bilaterally), Other (Tachypneic breathing over the vent) Cardiovascular: positive: No murmur, No gallop, Irregularly irregular, Tachycardia Peripheral Pulses: positive: 2+ Abdomen: positive: Non-tender, No organomegaly, Nml bowel sounds, No distention. negative: Guarding, Rebound, Hepatomegaly Back: positive: Nml inspection. negative: CVA tenderness (R), CVA tenderness (L ) Skin: positive: Color nml, No rash, Warm. negative: Diaphoresis, Pallor, Skin rash Extremities: positive: Non-tender, Nml appearance, Pedal edema (1+ bilateral) Neurologic/Psychiatric: positive: Other (Intubated and sedated, does move both feet to painful stimulus but not upper extremities, not opening eyes) - LABS Result Diagrams: 02/23/18 09:14 02/23/18 04:00 Other Lab Results: Laboratory Results WBC 11.7 x10^3/uL (4.8-10.8) H 02/23/18 09:14 RBC 4.45 10^6/uL (4.70-6.10) L 02/23/18 09:14 Hgb 13.6 g/dL (14.0-18.0) L 02/23/18 09:14 Hct 40.6 % (42.0-52.0) L 02/23/18 09:14 MCV 91.2 fL (80.0-94.0) 02/23/18 09:14 MCH 30.5 pg (27.0-31.0) 02/23/18 09:14 MCHC 33.4 g/dL (32.0-36.0) 02/23/18 09:14 RDW 13.8 % (12.0-15.0) 02/23/18 09:14 Plt Count 172 10^3/uL (130-450) 02/23/18 09:14 MPV 9.1 fL (7.4-11.4) 02/23/18 09:14 Neut # 12.9 10^3/uL (1.5-6.6) H 02/23/18 04:00 Lymph # 0.7 10^3/uL (1.5-3.5) L 02/23/18 04:00 Millard # 0.9 10^3/uL (0.0-1.0) 02/23/18 04:00 Eos # 0.0 10^3/uL (0.0-0.7) 02/23/18 04:00 Baso # 0.0 10^3/uL (0.0-0.1) 02/23/18 04:00 Absolute Nucleated RBC 0.01 x10^3/uL 02/23/18 04:00 Nucleated RBC % 0.1 /100WBC 02/23/18 04:00 Manual Slide Review Indicated 02/22/18 22:00 Platelet Estimate NORMAL (130-450,000) (NORMAL) 02/22/18 22:00 Platelet Morphology 1+ GIANT PLATELETS (NORMAL) 02/22/18 22:00 RBC Morph Micro Appear NORMAL APPEARANCE (NORMAL) 02/22/18 22:00 PT 12.8 secs (9.9-12.6) H 02/22/18 22:00 INR 1.1 (0.8-1.2) 02/22/18 22:00 APTT 25.6 secs (24.9-33.3) 02/22/18 22:00 Anti-Xa Level 0.1 U/mL (-0.7) 02/23/18 09:14 Bld Gas Analysis Time 18 02/23/18 06:10 Sample Site RIGHT RADIAL 02/23/18 06:10 ABG pH 7.33 (7.35-7.45) L 02/23/18 06:10 ABG pCO2 44 mmHg (34-45) 02/23/18 06:10 ABG pO2 65 mmHg (80-100) L 02/23/18 06:10 ABG HCO3 23.0 mmol/L (22.0-26.0) 02/23/18 06:10 ABG Total CO2 24.4 MMOL/L (21.0-29.0) 02/23/18 06:10 ABG O2 Saturation 93 % (94-98) L 02/23/18 06:10 ABG Oximetry Spot Check 100 % 02/23/18 06:10 ABG Base Excess -2.9 mmol/L (-2.0-3.0) L 02/23/18 06:10 Robert Test POSITIVE 02/23/18 06:10 Respiration Rate 16 b/min 02/23/18 06:10 O2 Delivery Device VENTILATOR 02/23/18 06:10 Vent Mode SIMV 02/23/18 06:10 FiO2 30.00 02/23/18 06:10 Tidal Volume 500 mL 02/23/18 06:10 PEEP 15 cmH2O 02/23/18 06:10 Pressure Support Vent 15 cmH2O 02/23/18 06:10 Sodium 140 mmol/L (135-145) 02/23/18 04:00 Potassium 4.6 mmol/L (3.5-5.0) 02/23/18 04:00 Chloride 108 mmol/L (101-111) 02/23/18 04:00 Carbon Dioxide 24 mmol/L (21-32) 02/23/18 04:00 Anion Gap 8.0 (6-13) 02/23/18 04:00 BUN 24 mg/dL (6-20) H 02/23/18 04:00 Creatinine 1.2 mg/dL (0.6-1.2) 02/23/18 04:00 Estimated GFR (MDRD) 60 (>89) L 02/23/18 04:00 Glucose 119 mg/dL (70-100) H 02/23/18 04:00 POC Whole Bld Glucose 99 mg/dL (70 - 100) 02/23/18 06:13 Glycated Hemoglobin 5.5 % (4.6-6.2) 02/23/18 04:00 Estim Average Glucose 111 (70-100) H 02/23/18 04:00 Lactic Acid 1.0 mmol/L (0.5-2.2) 02/23/18 08:11 Calcium 8.1 mg/dL (8.5-10.3) L 02/23/18 04:00 Magnesium 2.0 mg/dL (1.7-2.8) 02/22/18 22:00 Total Bilirubin 0.8 mg/dL (0.2-1.0) 02/23/18 04:00 AST 72 IU/L (10-42) H 02/23/18 04:00 ALT 75 IU/L (10-60) H 02/23/18 04:00 Alkaline Phosphatase 89 IU/L (42-121) 02/23/18 04:00 Total Creatine Kinase 87 IU/L (22-269) 02/22/18 22:00 CK-MB (CK-2) 3.7 ng/mL (0.6-6.3) 02/22/18 22:00 Troponin I 0.47 ng/mL (<0.49) 02/23/18 08:11 B-Natriuretic Peptide 1244 pg/mL (5-100) H 02/23/18 06:00 Total Protein 6.2 g/dL (6.7-8.2) L 02/23/18 04:00 Albumin 3.6 g/dL (3.2-5.5) 02/23/18 04:00 Globulin 2.6 g/dL (2.1-4.2) 02/23/18 04:00 Albumin/Globulin Ratio 1.4 (1.0-2.2) 02/23/18 04:00 Lipase 15 U/L (22-51) L 02/22/18 22:00 TSH 1.23 uIU/mL (0.34-5.60) 02/22/18 22:00 Urine Color YELLOW 02/22/18: Urine Clarity CLEAR (CLEAR) 02/22/18: Urine pH 6.0 PH (5.0-7.5) 02/22/18 22: Ur Specific [place] 1.025 (1.002-1.030) 02/22/18 22: Urine Protein NEGATIVE mg/dL (NEGATIVE) 02/22/18 22: Urine Glucose (UA) NEGATIVE mg/dL (NEGATIVE) 02/22/18 22: Urine Ketones NEGATIVE mg/dL (NEGATIVE) 02/22/18 22: Urine Occult Blood SMALL (NEGATIVE) H 02/22/18 22: Urine Nitrite NEGATIVE (NEGATIVE) 02/22/18 22: Urine Bilirubin NEGATIVE (NEGATIVE) 02/22/18 22: Urine Urobilinogen 0.2 (NORMAL) E.U./dL (NORMAL) 02/22/18 22:29 Ur Leukocyte Esterase NEGATIVE (NEGATIVE) 02/22/18 22: Urine RBC 0-5 /HPF (0-5) 02/22/18 22:29 Urine WBC 0-3 /HPF (0-3) 02/22/18 22:29 Ur Squamous Epith Cells NONE SEEN (<= Few) 02/22/18 22: Urine Bacteria None Seen /HPF (None Seen) 02/22/18 22: Ur Microscopic Review INDICATED 02/22/18 22: Urine Culture Comments NOT INDICATED 02/22/18 22: Salicylates < 6.0 mg/dL 02/22/18 22:00 Urine Opiates Screen NEGATIVE (NEGATIVE) 02/22/18 22: Ur Oxycodone Screen NEGATIVE (NEGATIVE) 02/22/18 22: Urine Methadone Screen NEGATIVE (NEGATIVE) 02/22/18 22: Ur Propoxyphene Screen NEGATIVE (NEGATIVE) 02/22/18: Acetaminophen < 10 ug/mL (10-30) L 02/22/18 22:00 Ur Barbiturates Screen NEGATIVE (NEGATIVE) 02/22/18 22:29 Ur Tricyclics Screen NEGATIVE (NEGATIVE) 02/22/18 22:29 Ur Phencyclidine Scrn NEGATIVE (NEGATIVE) 02/22/18 22:29 Ur Amphetamine Screen NEGATIVE (NEGATIVE) 02/22/18 22:29 U Methamphetamines Scrn POSITIVE (NEGATIVE) H 02/22/18 22:29 U Benzodiazepines Scrn NEGATIVE (NEGATIVE) 02/22/18 22:29 Urine Cocaine Screen NEGATIVE (NEGATIVE) 02/22/18 22:29 U Cannabinoids Screen POSITIVE (NEGATIVE) H 02/22/18 22:29 Ethyl Alcohol < 5.0 mg/dL 02/22/18 22:00 - DIAGNOSTIC IMAGING Diagnostic Imaging Results: Final report reviewed Diagnostic Imaging Results Comments: EXAM: [id number] XR/CXR1VW ([id number]) EXAM: CHEST RADIOGRAPHY EXAM DATE: 02/22/2018 10:16 PM. CLINICAL HISTORY: Respiratory failure. Intubated. COMPARISON: None. TECHNIQUE: 1 view. FINDINGS: Lungs/Pleura: Mild haziness in the bases, otherwise no focal opacities evident. No pleural effusion. No pneumothorax. Mediastinum: Large heart. Other: ET tube is about 5 cm from the reyna. Mild S-shaped scoliosis. IMPRESSION: 1. Large heart. 2. Mild haziness in the bases, atelectasis/infiltrate versus pulmonary edema. 3. ET tube about 2 cm from the reyna. EXAM: [id number] CT/HEADSP ([id number]) EXAM: CT HEAD EXAM DATE: 02/22/2018 10:16 PM. CLINICAL HISTORY: Right sided weakness COMPARISON: None. TECHNIQUE: Multiaxial CT images were obtained from the foramen magnum to the vertex. Reformats: Coronal. IV contrast: None. In accordance with CT protocol optimization, one or more of the following dose reduction techniques were utilized for this exam: automated exposure control, adjustment of mA and/or KV based on patient size, or use of iterative reconstructive technique. FINDINGS: Parenchyma: No intraparenchymal hemorrhage. No evidence of mass, midline shift, or CT findings of recent infarction. Fallon-white differentiation is distinct. Lacunar infarcts are seen within the right caudate nucleus. Extraaxial Spaces: Normal for age. No subdural or epidural collections identified. Ventricles: Normal in size and position. Sinuses and Orbits: Imaged paranasal sinuses, orbits, and mastoids show no significant abnormality. Bones: No evidence of fracture or calvarial defect. Other: None. IMPRESSION: Chronic lacunar infarcts within the right caudate nucleus. Faintly hyperdense left M2 branch within the dorsal sylvian fissure, potentially thrombosed. No hemorrhage. No CT evidence of recent infarct. ASPECTS score 10 bilaterally. EXAM: XR/CXRLP ([id number]) EXAM: CHEST RADIOGRAPHY EXAM DATE: 02/22/2018 10:59 PM. CLINICAL HISTORY: Post right IJ central line. COMPARISON: Today at 2155. TECHNIQUE: 1 view. FINDINGS: Lungs/Pleura: Mild bibasilar and left perihilar haziness. No pneumothorax. Mediastinum: Large heart. Other: ET tube about 7 cm from the reyna. Distal enteric tube obscured. Right IJ line to mid SVC. IMPRESSION: Right IJ line to mid SVC. No pneumothorax or other acute change. EXAM: [id number] CT/NECKANG ([id number]) EXAM: CT ANGIOGRAM NECK EXAM DATE: 02/22/2018 11:30 PM. CLINICAL HISTORY: Right sided weakness, now unresponsive and intubated. COMPARISON: None. TECHNIQUE: Routine axial helical imaging was performed from the skull base through the aortic arch. Reconstructions: Routine multiplanar 3D MIP reconstructions. IV Contrast: 80 cc Isovue 300. Evaluation of arterial stenosis is based on a NASCET method of measurement. In accordance with CT protocol optimization, one or more of the following dose reduction techniques were utilized for this exam: automated exposure control, adjustment of mA and/or KV based on patient size, or use of iterative reconstructive technique. FINDINGS: Aortic arch, origins of the great vessels, brachiocephalic and both subclavian arteries are patent. Right common carotid artery is patent to the bifurcation. There is atherosclerotic calcification of the carotid bulb without significant stenosis. Left common carotid is patent to the bifurcation. Minimal atherosclerotic calcification of the carotid bulb without flow-limiting stenosis. Both vertebral arteries are patent in the neck. Left is slightly larger than the right. ET and orogastric tube in position. Right IJ line. Impression: No significant carotid stenosis. Patent vertebral arteries in the neck bilaterally. EXAM: [id number] CT/HEADANG ([id number]) EXAM: CT ANGIOGRAM HEAD. CT SCAN OF THE HEAD WITH CONTRAST. EXAM DATE: 02/22/2018 11:29 PM CLINICAL HISTORY: Right sided weakness, now unresponsive and intubated. COMPARISON: Head CT done immediately prior. TECHNIQUE: - CT Scan Head: Using a multidetector scanner, axial images were acquired from the foramen magnum to the skull vertex after contrast administration. - CT Angiogram: Using a multidetector scanner, high-resolution axial images were acquired from the skull base through vertex following rapid infusion of intravenous contrast. Reformats: Multiplanar MIP reformats were reconstructed. Nascet criteria used for stenosis measurement. IV Contrast: 80 cc Isovue 300. In accordance with CT protocol optimization, one or more of the following dose reduction techniques were utilized for this exam: automated exposure control, adjustment of mA and/or KV based on patient size, or use of iterative reconstructive technique. FINDINGS: POST-CONTRAST HEAD: No abnormal enhancement. CT ANGIOGRAM HEAD: Left vertebral artery is slightly larger than the right. Basilar artery and the right posterior cerebral artery are unremarkable. Persistent circulation to the left posterior cerebral area There is atherosclerotic calcification of both carotid siphons without flow limiting stenosis. Both anterior and middle cerebral arteries appear patent and unremarkable. Specifically, the left MCA and its major branches appear patent without evidence of thrombus. Impression: Head CT after contrast: No abnormal enhancement. Intracranial CT angiography: No flow limiting stenosis, occlusion or aneurysm. Echocardiogram Findings: Moderate left ventricular enlargement. Left ventricular wall thickness is normal. Overall left ventricular systolic function is severely impaired with an ejection fraction of less than 20%. Diastology and subtle regional wall motion abnormalities are difficult to assess in the presence of arrhythmia. Mild right ventricular enlargement. The right ventricular systolic function is moderately impaired. Severe increase in left atrial volume index Severe right atrial enlargement The aortic valve is trileaflet. There is mild aortic valve sclerosis. There is no evidence of aortic stenosis. There is no evidence of aortic regurgitation. The mitral valve is normal. No mitral stenosis noted. Mild mitral annular calcification. There is mild to moderate mitral regurgitation. Tricuspid valve appears structurally normal. No tricuspid stenosis noted. Mild tricuspid regurgitation. Mildly abnormal right heart pressures. The right ventricular systolic pressure at rest is 47 mmHg. The pulmonic valve is normal no significant pulmonic regurgitation noted. There is no pulmonic stenosis noted. There is no pericardial effusion noted. The intra-atrial septum appears normal. The intra-atrial septum is intact on color flow imaging. The aortic root, ascending aorta and aortic arch diameters are normal. The pulmonary artery is normal. The inferior vena cava is dilated with greater than 50% inspiratory collapse which is suggestive of a right atrial pressure of at least 15 mmHg. There is no obvious vegetations. Subtle lesion cannot be excluded. No mass or thrombus identified There is no pleural effusion noted. CT angiogram of the lungs Impression: No pulmonary embolism, emphysema, small effusions and basilar atelectasis. - FOLLOW UP Follow Up: Patient transferred to [facility] in [place] for cardiology and higher level of care. - TIME SPENT Time Spent in Discharge (Minutes): 55
[2018-02-23] MEDS: IOPAMIDOL-300 100 ML VIAL IVP ONE (11:37)
--- NOTE | 2018-02-23 12:58 | Discharge Plan ---
Discharge Plan Disposition: 02 Transfer Acute Care Hosp Condition: Critical No Smoking: If you smoke, Please STOP! Call for help.
[2018-02-23] MEDS ORDERED: FUROSEMIDE 40 MG/4 ML VIAL IVP STA (13:19)
--- NOTE | 2018-02-23 15:03 | CT Report ---
CT PULMONARY ANGIOGRAM: 02/23/2018 CLINICAL INDICATION: Respiratory failure. TECHNIQUE: Axial CT images of the chest were obtained with 80 mL Isovue 300 intravenously. Sagittal and coronal 3-D reconstructions were performed. CT DOSE REDUCTION STATEMENT In accordance with CT protocol optimization, one or more of the following dose reduction techniques were utilized for this exam: automated exposure control, adjustment of mA and/or KV based on patient size, or use of iterative reconstructive technique. COMPARISON: Chest x-ray 02/22/2018. FINDINGS: The heart and great vessels demonstrate atherosclerotic calcification. No hilar or mediastinal lymphadenopathy is present. There is no evidence of pulmonary embolus. Small pleural effusions are present, with dependent airspace disease. Biapical emphysema is also noted. No pneumothorax. Osseous structures demonstrate degenerative changes. Limited evaluation of upper abdominal structures demonstrates normal adrenal glands. IMPRESSION: EMPHYSEMA. SMALL EFFUSIONS AND ASSOCIATED DEPENDENT AIRSPACE DISEASE. NO EVIDENCE OF PULMONARY EMBOLUS. TD: 02/23/2018 11:40
[2018-02-23 15:49] VITALS: BP 121/83
== END 2018-02-23 15:50 | disposition short-term general hospital (02) | DRG 208 ==
LOC: EDUNIT# → EDBD → ED 21:48 → ICU 02-23 00:09
PROVIDERS: ADMIT Specialist; ATTEND Internal Medicine
PROC: 5A1935Z Respiratory Ventilation, Less than 24 Consecutive Hours (ICD-10-PCS; principal; 2018-02-22)
DX: J96.00 Acute respiratory failure, unspecified whether with hypoxia or hypercapnia (principal); J96.01 Acute respiratory failure with hypoxia; I21.4 Non-ST elevation (NSTEMI) myocardial infarction; R03.0 Elevated blood-pressure reading, without diagnosis of hypertension; E87.2 Acidosis; I50.20 Unspecified systolic (congestive) heart failure; I95.2 Hypotension due to drugs; T41.295A Adverse effect of other general anesthetics, initial encounter; Y92.230 Patient room in hospital as the place of occurrence of the external cause; R40.2432 Glasgow coma scale score 3-8, at arrival to emergency department; I48.91 Unspecified atrial fibrillation; J43.9 Emphysema, unspecified; Z78.1 Physical restraint status; Z72.0 Tobacco use
CPT/HCPCS: 36415; 36556; 36600; 51702; 70450; 70496; 70498; 71045; 71275; 80053; 80306; 80307; 80320; 80329; 81001; 81003; 82550; 82553; 82803; 83036; 83605; 83690; 83735; 83880; 84443; 84484; 85025; 85520; 85610; 85730; 87040; 87086; 87150; 93005; 93306; 94002; 94003; 94770; 96374; 96376; 99285; 99291; 99292